=== PATIENT | female | born 1965 | race Caucasian/White ===

== ENCOUNTER → 2019-03-01 | Outpatient (CLI) | payer OTHER | LOC: M.RAD 02-28 08:30 | DX: Z12.31 Encounter for screening mammogram for malignant neoplasm of breast (principal); E28.39 Other primary ovarian failure; Z78.0 Asymptomatic menopausal state ==

== ENCOUNTER → 2019-03-06 | Outpatient (CLI) | payer OTHER | LOC: M.RAD 03-04 08:36 | DX: N63.10 Unspecified lump in the right breast, unspecified quadrant (principal) ==

== ENCOUNTER → 2020-12-08 | Outpatient (CLI) | payer OTHER | LOC: M.ULTRA 10:09 | PROVIDERS: ATTEND Specialist | DX: Z12.31 Encounter for screening mammogram for malignant neoplasm of breast (principal); R63.5 Abnormal weight gain; R53.83 Other fatigue; R60.0 Localized edema ==

== ENCOUNTER → 2020-12-11 | Outpatient (CLI) | payer OTHER | LOC: M.ULTRA 14:47 | PROVIDERS: ATTEND Specialist | DX: N63.20 Unspecified lump in the left breast, unspecified quadrant (principal) ==

== ENCOUNTER → 2020-12-17 | Outpatient (CLI) | payer OTHER ==
--- NOTE | 2020-12-22 18:06 | PATH ---
[address] [address] PATHOLOGY RPT PROCEDURE Name: JIGARKRISTY SADLER Room: [facility].#: [id number] Admission: 12/17/20 Date of : 69 Discharge: Report #: [id number] Path Case #: [id number] [facility] Accession Number: [id number] . 01 Material submitted: . breast - LEFT BREAST TISSUE. Modifiers: left . 01 Clinical history: . TIME COLLECTED 1405, FORMALIN TIME IN 1410 LEFT BREAST STEREOTACTIC BIOPSY FOR MASS . 02 Diagnosis: Left breast tissue/mass, stereotactic biopsy: - Benign breast tissue with cystic papillary apocrine change and acute inflammation, negative for atypia. See comment. (OLIVIA:pit 12/22/2020) QTP 12/22/2020 [facility] Local . 02 Comment: Reviewed with Dr. Stefanie Yarbrough who agrees with the diagnosis. (OLIVIA:pit 12/22/2020) . 02 Electronically signed: . Toni Rivas MD, Pathologist NPI- [id number] . 01 Gross description: . The specimen is received in formalin, labeled "Kristy Kimball, left breast mass" and consists of multiple soft appiah-yellow tissue cores measuring up to 1.7 cm x 0.2 cm. The specimen is entirely submitted A1-A3. . The specimen is removed from the patient at 1405 hours and placed in formalin at 1410 hours on , December 17, 2020. The specimen is removed from formalin at 11:30pm on Friday, December 18, 2020. The specimen is in formalin for greater than 6 hours and less than 72 hours.([facility]; 12/17/2020) [place] 12/17/2020 1844 Local . 02 Pathologist provided ICD-10: N61.0 . 02 CPT . 739398 Specimen Comment: A courtesy copy of this report has been sent to [phone] Specimen Comment: Report sent to / Performed at: [address] [facility] [address], [place] [id number] [place] [address] PATHOLOGY RPT PROCEDURE Name: KRISTY KIMBALL Room: [facility]#: [id number] Admission: 12/17/20 Date of : 69 Discharge: Report #: [id number] Path Case #: [id number] MD Ramiro Mares MD Phone: [phone] Performed at: [address] [facility] [address] DESMOND Hennessy [id number] MD Toni Rivas MD Phone: [phone]
== END | disposition home or self-care (01) ==
LOC: M.RAD 13:27
PROVIDERS: ATTEND Specialist
DX: N61.0 Mastitis without abscess (principal); N60.82 Other benign mammary dysplasias of left breast; R92.1 Mammographic calcification found on diagnostic imaging of breast

== ENCOUNTER → 2021-05-10 | Outpatient (CLI) | payer OTHER | LOC: M.ULTRA 07:23 | PROVIDERS: ATTEND Family Medicine | DX: D25.9 Leiomyoma of uterus, unspecified (principal); R60.9 Edema, unspecified ==

== ENCOUNTER → 2021-06-09 | Outpatient (CLI) | payer OTHER | LOC: M.RAD 09:20 | PROVIDERS: ATTEND Family Medicine | DX: N63.20 Unspecified lump in the left breast, unspecified quadrant (principal); Z98.890 Other specified postprocedural states ==

== ENCOUNTER → 2021-06-11 | Outpatient (CLI) | payer OTHER | LOC: M.ULTRA 07:14 | PROVIDERS: ATTEND Family Medicine | DX: K76.0 Fatty (change of) liver, not elsewhere classified (principal); R19.8 Other specified symptoms and signs involving the digestive system and abdomen; Z90.49 Acquired absence of other specified parts of digestive tract ==